=== PATIENT | male | born 1960 | race Caucasian/White ===

== ENCOUNTER → 2018-06-25 | Outpatient (CLI) | payer OTHER ==
--- NOTE | 2018-06-25 12:39 | XR ---
Cervical spine HISTORY: Neck pain 5 views of the cervical spine Cervical vertebral bodies show decreased mineralization are preserved height. Minimal anterolisthesis grade 1 C2-3. Retrolisthesis grade 1 C4-5. There is loss of disc height and intervertebral levels, m ultilevel spondylosis present. Prevertebral soft tissues are normal. There is facet arthropathy. Fora skyalr encroachment noted at 4, C4-5 and C6-7 on the right, C4-5 on the left. IMPRESSION: Degenerative disc disease. Cervical MRI may be of benefit. Osteopenia. Facet arthropathy.
--- NOTE | 2018-06-25 12:43 | XR ---
Left shoulder HISTORY: Left shoulder pain 3 views of the left shoulder Acromioclavicular joint arthropathy changes present. Alignment and bone mineralization are maintained . Left lung apex as visualized is normal. IMPRESSION: Acromioclavicular joint arthropathy, shoulder MRI may be of benefit.
== END ==
LOC: RADXRYALE 10:58
PROVIDERS: ATTEND Physician Assistant Medical
DX: M50.30 Other cervical disc degeneration, unspecified cervical region (principal); M46.82 Other specified inflammatory spondylopathies, cervical region; M85.88 Other specified disorders of bone density and structure, other site; M19.012 Primary osteoarthritis, left shoulder
CPT/HCPCS: 72050

== ENCOUNTER → 2018-09-25 | Outpatient (CLI) | payer OTHER ==
--- NOTE | 2018-09-26 23:42 | MR ---
EXAMINATION TYPE: MR shoulder LT wo con DATE OF EXAM: 09/25/2018 COMPARISON: Left shoulder x-ray June 25, 2018. HISTORY: Left shoulder pain, Synovitis, and tenosynovitis TECHNIQUE: Multiplanar, multisequence imaging of the left shoulder is performed without contrast. FINDINGS: Rotator Cuff: There is full-thickness retracted tear supraspinatus tendon retracted to level of the a cromioclavicular joint seen paracoronal image 12 . Infraspinatus tendon shows increased signal with t ear of the anterior fibers. Subscapularis tendon is thickened with increased signal. Mild generalized atrophy of infraspinatus muscle bulk is noted. Acromioclavicular Joint: Moderate to severe narrowing at acromioclavicular joint is present. Inferior fat plane is maintained. Distal acromion morphology is unremarkable. Glenohumeral Joint: High riding humeral head is present. Moderate to severe narrowing superior glenoh umeral joint space is noted. [id number] spurring medial humeral head is seen. Moderate to large joint effusion is present. Labrum: The labrum appears grossly intact given limitation of non-arthrogram study. Biceps Tendon: The long head of biceps is in normal location within bicipital groove. Bone marrow signal: No focal abnormal marrow signal is appreciated. Other: No additional significant abnormality is appreciated. IMPRESSION: Full-thickness retracted tear supraspinatus tendon with evidence of instability as there is high riding humeral head noted. Other findings as noted above.
== END | disposition home or self-care (01) ==
LOC: RADMRIMAIN 20:31
PROVIDERS: ATTEND Orthopaedic Surgery
DX: M75.122 Complete rotator cuff tear or rupture of left shoulder, not specified as traumatic (principal); G56.01 Carpal tunnel syndrome, right upper limb; G56.02 Carpal tunnel syndrome, left upper limb

== ENCOUNTER → 2024-08-17 | Outpatient (CLI) | payer OTHER ==
--- NOTE | 2024-08-17 13:54 | XR ---
EXAMINATION TYPE: XR knee complete LT DATE OF EXAM: 08/17/2024 COMPARISON: NONE CLINICAL INDICATION: Male, 63 years old with history of [id number] LT KNEE PAIN; TECHNIQUE: Three views are submitted. FINDINGS: Mild medial compartment narrowing with marginal spurring. Osseous structures are intact. No acute fr acture seen. Enthesophyte along the upper margin of the patella. Large suprapatellar bursal fluid co llection. Generalized demineralization. IMPRESSION: 1. Large suprapatellar bursal fluid collection. 2. Mild osteoarthritis.. [facility], , 08/17/2024 1:52 PM
== END | disposition home or self-care (01) ==
LOC: RADXRYALE 13:30
PROVIDERS: ATTEND Physician Assistant Medical
DX: M17.12 Unilateral primary osteoarthritis, left knee (principal)

== ENCOUNTER → 2024-08-29 | Outpatient (CLI) | payer OTHER ==
--- NOTE | 2024-08-29 17:17 | MR ---
EXAMINATION TYPE: MRI left knee without IV contrast DATE OF EXAM: 08/29/2024 COMPARISON: 08/17/2024 HISTORY: Pain, injury TECHNIQUE: Multiplanar, multisequence imaging of the left knee is performed without IV contrast. FINDINGS: MEDIAL MENISCUS: Near complete radial tear at the posterior root of the medial meniscus. Associated i ncreased intrasubstance signal in the posterior body and horn of the medial meniscus. Intact anterior horn. Mild diffuse meniscal extrusion. LATERAL MENISCUS: Complete radial tear of the posterior root of the lateral meniscus. Remaining porti ons of the lateral meniscus are intact. CRUCIATE LIGAMENTS: Complete tear of the anterior cruciate ligament. Low-grade sprain of the posterio r cruciate ligament. COLLATERAL LIGAMENTS: Grade 1 sprain of the medial collateral ligament demonstrating periligamentous edema without disruption low-grade sprain of the proximal fibular collateral ligament. Biceps femoris and popliteal tendons are intact. EXTENSOR MECHANISM: Visualized quadriceps and patellar tendons are intact. EFFUSION: Moderate joint effusion without significant synovitis. POPLITEAL CYST: No popliteal/ballesteros cyst. CARTILAGE: Patellofemoral compartment cartilage is intact. No full-thickness chondral defects in the medial or lateral compartments BONE MARROW SIGNAL: Nondisplaced pivot shift impaction fractures of the middle third of the lateral f emoral condyle and along the posterior aspect of the lateral tibial plateau. Low-level bone marrow co ntusions along the peripheral aspect of the medial femoral condyle and posterior medial tibial platea u. OTHER: Mild diffuse subcutaneous edema about the knee. IMPRESSION: 1. Rupture of the anterior cruciate ligament. Associated pivot shift impaction fractures/contusions a s above. 2. Complete tear of the posterior root of the lateral meniscus. 3. Near complete tear of the posterior root of the medial meniscus 4. Low-grade sprains of the posterior cruciate, medial collateral and fibular collateral ligaments. [facility], , 08/29/2024 5:15 PM
== END | disposition home or self-care (01) ==
LOC: RADMRIMAIN 12:05
PROVIDERS: ATTEND Orthopaedic Surgery Sports Medicine
DX: S83.272A Complex tear of lateral meniscus, current injury, left knee, initial encounter (principal); S80.02XA Contusion of left knee, initial encounter; M25.462 Effusion, left knee